=== PATIENT | female | born 1970 | race African-American/Black ===

== ENCOUNTER 2021-04-06 21:52 | Inpatient (IN) | payer SELFPAY ==
[~2021-04-06] VITALS: Ht 165.1 cm; Wt 66.8 kg
[2021-04-06] MEDS ORDERED: ACETAMINOPHEN 325MG TABLET PO STA (22:36)
[2021-04-06] MEDS ORDERED: VANCOMYCIN 1G PREMIX 200 ML IV ONE (22:45)
[2021-04-06] MEDS ORDERED: PIPERACILLIN/TAZ 3.375G PREMIX 50 ML IV ONE (22:45)
[2021-04-06] MEDS ORDERED: SODIUM CHLORIDE 0.9% 1000ML BAG (SEPSIS BOLUS) IV ONE (22:45)
[2021-04-06 23:11] LABS: BASOPHILS % 0.7 % (0.0-2.0); EOSINOPHILS % 1.6 % (0.0-5.0); HEMATOCRIT. 35.6 % (36.0-48.0); HEMOGLOBIN. 11.4 g/dL (12.0-16.0); LYMPHOCYTES % 13.7 % (20.0-50.0); MEAN CORPUSCULAR HEMOGLOBIN 24.6 pg (28.0-32.0); MEAN CORPUSCULAR VOLUME 76.7 fL (81.0-99.0); MEAN PLATELET VOLUME 7.3 fl (7.4-10.4); MONOCYTES % 10.8 % (2.0-8.0); NEUTROPHILS % 73.2 % (40.0-76.0); PLATELET 976 x1000/uL (130-400); RED BLOOD CELL COUNT 4.65 mill/uL (4.2-5.4); RED CELL DISTRIBUTION WIDTH 16.4 % (11.6-14.6)
[2021-04-06 23:15] LABS: CHLORIDE 108 mEq/L (98-107)
[2021-04-06] MEDS ORDERED: VANCOMYCIN 1,000 MG in DEXT 5% WATER 250 ML IV NR (23:15)
[2021-04-06 23:19] LABS: ETHANOL BLOOD < 10 mg/dL; HCG SCREEN NEGATIVE
[2021-04-07 01:04] LABS: CLARITY URINE CLEAR (CLEAR); COLOR URINE YELLOW (YELLOW); KETONES URINE NEGATIVE (NEGATIVE); LEUKOCYTE ESTERASE URINE 1+ (NEGATIVE); NITRITE URINE NEGATIVE (NEGATIVE); OCCULT BLOOD URINE NEGATIVE (NEGATIVE); PROTEIN URINE 2+ (NEGATIVE); SPECIFIC GRAVITY URINE 1.015 (1.005-1.030); UROBILINOGEN URINE 0.2 E.U./dL (0.2-1.0)
[2021-04-07 01:43] LABS: *AMPHETAMINES SCREEN URINE NEGATIVE (NEGATIVE); *BARBITURATES SCREEN URINE NEGATIVE (NEGATIVE)
[2021-04-07 01:44] LABS: *BENZODIAZEPINES SCREEN URINE NEGATIVE (NEGATIVE); *COCAINE SCREEN URINE NEGATIVE (NEGATIVE); CANNABINOID URINE SCREEN NEGATIVE (NEGATIVE); METHADONE URINE SCREEN NEGATIVE (NEGATIVE); OPIATES URINE SCREEN NEGATIVE (NEGATIVE); PHENCYCLIDINE URINE SCREEN NEGATIVE (NEGATIVE)
[2021-04-07 03:32] VITALS: BP 138/83
[2021-04-07] MEDS ORDERED: ACETAMINOPHEN 325MG TABLET PO PRN (04:45)
[2021-04-07] MEDS ORDERED: PIPERACILLIN/TAZOBACTAM 3.375 G in DEXTROSE 5% WATER 50 ML IV SCH (06:00)
[2021-04-07 06:52] VITALS: BP 129/73
[2021-04-07 08:00] VITALS: BP 119/69
[2021-04-07] MEDS: ENOXAPARIN 40MG/0.4ML SYR SUBCUT SCH (10:00)
[2021-04-07] MEDS: CEFTRIAXONE 1,000 MG in DEXTROSE 5% WATER 50 ML IV SCH (11:34)
[2021-04-07 12:00] VITALS: BP 117/75
[2021-04-07] MEDS ORDERED: VANCOMYCIN 1,000 MG in DEXT 5% WATER 250 ML IV SCH (12:00)
[2021-04-07 12:11] LABS: CHLORIDE 111 mEq/L (98-107)
[2021-04-07 12:23] LABS: CREATINE KINASE 39 IU/L (26-192); CREATINE KINASE MB FRACTION < 1.0 ng/mL (0.5-3.6)
[2021-04-07 15:07] LABS: *AMPHETAMINES SCREEN URINE NEGATIVE (NEGATIVE); *BARBITURATES SCREEN URINE NEGATIVE (NEGATIVE); *BENZODIAZEPINES SCREEN URINE NEGATIVE (NEGATIVE); *COCAINE SCREEN URINE NEGATIVE (NEGATIVE); METHADONE URINE SCREEN NEGATIVE (NEGATIVE); OPIATES URINE SCREEN NEGATIVE (NEGATIVE)
[2021-04-07 15:08] LABS: CANNABINOID URINE SCREEN NEGATIVE (NEGATIVE); PHENCYCLIDINE URINE SCREEN NEGATIVE (NEGATIVE)
[2021-04-07] MEDS ORDERED: HYDROCODONE/ACETAMINOPHEN 5/325MG TABLET PO PRN (15:15)
[2021-04-07] MEDS ORDERED: NALOXONE HCL 0.4MG/ML VIAL IV PRN (15:30)
[2021-04-07 16:00] VITALS: BP 118/73
[2021-04-07 16:34] LABS: HEMATOCRIT 31.7 % (36.0-48.0); HEMOGLOBIN 10.1 g/dL (12.0-16.0); MEAN CORPUSCULAR HEMOGLOBIN 24.1 pg (28.0-32.0); MEAN CORPUSCULAR VOLUME 75.3 fL (81.0-99.0); PLATELET 841 x1000/uL (130-400); RED BLOOD CELL COUNT 4.21 mill/uL (4.2-5.4); RED CELL DISTRIBUTION WIDTH 16.2 % (11.6-14.6)
[2021-04-07 20:00] VITALS: BP 119/76
[2021-04-07] MEDS ORDERED: HEPARIN 25,000 UNITS PREMIX 250 ML IV SCH (22:30)
[2021-04-07] MEDS ORDERED: HEPARIN 25,000 UNITS PREMIX 250 ML IV PRN ×2 (22:45→23:45)
[2021-04-07 23:22] LABS: INR 1.2; PARTIAL THROMBOPLASTIN TIME 34.2 sec (23.4-31.0); PROTHROMBIN TIME 13.2 sec (9.6-11.0)
[2021-04-07] MEDS ORDERED: HEPARIN 5000 UNITS/ML VIAL IV SCH (23:30)
[2021-04-08] VITALS: BP 99/63
[2021-04-08 04:00] VITALS: BP 124/86
[2021-04-08] MEDS ORDERED: HEPARIN 5000 UNITS/ML VIAL IV PRN ×2 (05:00)
[2021-04-08 08:00] VITALS: BP 121/83
[2021-04-08] MEDS: ENOXAPARIN 40MG/0.4ML SYR SUBCUT SCH (09:16)
[2021-04-08] MEDS: CEFTRIAXONE 1,000 MG in DEXTROSE 5% WATER 50 ML IV SCH (09:16)
[2021-04-08] MEDS ORDERED: VANCOMYCIN 1.25GM PMX (XELLIA) 250 ML IV SCH (15:00)
[2021-04-09] MEDS ORDERED: VANCOMYCIN 1GM PMX (XELLIA) 200 ML IV SCH (03:00)
== END 2021-04-08 14:04 | disposition left against medical advice (07) | DRG 720 ==
LOC: ER 21:52 → MICUSO 04-07 00:43 → EDBEDREQTM 04-07 00:46 → EDBEDREQDT 04-07 00:46 → EDBEDREQ 04-07 00:46 → 7WST 04-07 05:11
PROVIDERS: ADMIT Internal Medicine; ATTEND Internal Medicine
DX: A41.89 Other specified sepsis (principal); J12.82 Pneumonia due to coronavirus disease 2019; F17.210 Nicotine dependence, cigarettes, uncomplicated; U07.1 COVID-19; F32.A Depression, unspecified; R80.9 Proteinuria, unspecified; M79.675 Pain in left toe(s); M79.674 Pain in right toe(s); F99 Mental disorder, not otherwise specified; Z91.19 Patient's noncompliance with other medical treatment and regimen; Z53.29 Procedure and treatment not carried out because of patient's decision for other reasons
CPT/HCPCS: 36415; 71045; 73630; 80048; 80053; 80061; 80305; 80320; 81003; 82550; 82553; 82728; 83036; 83605; 84145; 84443; 84484; 84703; 85025; 85027; 85379; 86140; 87426; 93005; 99285; J0696; J1644; J1650; J2543; J3370; J7030; J7060; G0480